=== PATIENT | female | born 1950 ===

== ENCOUNTER 2023-02-22 11:30 | Outpatient (AMB) | payer MEDICARE, SELFPAY ==
--- NOTE | 2023-02-22 12:27 | A.OFFPC_ITS ---
Vital Signs 02/22/23 12:28 Height 5 ft Weight 149 lb BMI 29.1 BP 120/78 Blood Pressure Location Lt brachial Position Sitting Pulse 72 Pulse Source Pulse Oximeter Pulse Oximetry (%) 97 Oxygen Delivery Method Room Air Intake Visit Reasons: Establish care/PE Intake Note: Patient here to re-establish care/PE. Allergies No Known Allergies Allergy (Verified 02/22/23 12:43) Medication List - Last Reconciled 02/22/23 by Cassie Miller MD amlodipine 5 mg PO DAILY cholecalciferol (vitamin D3) 50 mcg PO DAILY fluticasone propionate 50 mcg/actuation 1 spray intranasal DAILY Tobacco use date assessed: 02/22/23 Fall risk assessment: No Falls in past year Last assessed Fall Risk: 02/22/23 Dental Screening Did you have a dental visit in the last 12 months?: No Did you have a dental problem in the last 6 months where you did not have access to dental care?: No Was dental information given to patient?: No HPI Establish care/PE HPI Details 72-year-old lady with hypertension seasonal allergies, and history of anxiety disorder, here today for physical exam, and to establish self with a new provider. Blood pressure has been stable on current treatment. Has seasonal allergies, currently using Flonase nasal spray as needed. Complains of multiple tacks appearing on skin of chest and neck, which are increasing in size, requests also to see dermatologists due to presence of multiple moles on her trunk, has for routine skin check and screening for skin cancer Has intermittent episodes of anxiety attacks, has only been taking lorazepam as needed which has helped, needs a refill. Patient states she does not need to take it on a daily basis [facility] Medical History (Updated 02/22/23 @ 13:08 by Cassie Miller MD) Acute anxiety Essential hypertension Skin lesion of chest wall Skin tags, multiple acquired Surgical History (Updated 02/22/23 @ 13:08 by Cassie Miller MD) Hx of cataract surgery Family History (Updated 02/22/23 @ 12:59 by Cassie iMller MD) Father Esophageal cancer Mother No problems noted. 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 1. Little interest or pleasure in doing things: not at all 2. Feeling down, depressed, or hopeless: not at all 3. Trouble falling or staying asleep, or sleeping too much: not at all 4. Feeling tired or having little energy: not at all 5. Poor appetite or overeating: not at all 6. Feeling bad about yourself - or that you are a failure or have let yourself or your family down: not at all 7. Trouble concentrating on things, such as reading the newspaper or watching television: not at all 8. Moving or speaking so slowly that other people could have noticed. Or the opposite - being so fidgety or restless that you have been moving around a lot more than usual: not at all 9. Thoughts that you would be better off or of hurting yourself in some way: not at all Total score: 0 Depression Screening Interpretation: Negative 27510 - PHQ-9 Billing: Yes Source: Developed by Drs. Lucio Carpio, Barbara Bourgeois, Ridge Page and colleagues, with an educational melina from [employer]. Thrive Questionnaire Date Thrive assessed: 02/22/23 I am a: Patient What is your living situation today?: I have a steady place to live Within the past 12 months, did the food you bought not last and you didn't have the money to get more?: Never true Within the past 12 months, did you worry whether your food would run out before you got money to buy more?: Never true Do you have trouble paying for medicines?: No Do you have trouble getting transportation to medical appointments?: No Do you have trouble paying your heating and electricity bill?: No Do you have trouble taking care of your child, family member or friend?: No Do you have trouble with day-to-day activities such as bathing, preparing meals, shopping, managing finances, etc.?: No Are you currently unemployed and looking for a job?: No Are you interested in more education?: No AUDIT C Alcohol Use Questionnaire (AUDIT-C) 1. How often do you have a drink containing alcohol?: Never 3. How often do you have six or more drinks on one occasion?: Never Total Score: 0 Score Reviewed/Action Taken: No NESTOR-7 AMB Questionnaire NESTOR-7 Date NESTOR - 7 assessed: 02/22/23 Feeling nervous, anxious, or on edge: 0 = Not at all Not being able to stop or control worryin = Not at all Worrying too much about different things: 1 = Several days Trouble relaxin = Not at all Being so restless that it is hard to sit still: 0 = Not at all Becoming easily annoyed or irritable: 0 = Not at all Feeling afraid as if something awful might happen: 0 = Not at all Total NESTOR-7 score (0-4 normal; 5-9 mild; 10-14 moderate; 15-21 severe): 1 Source: Developed by Drs. Lucio Carpio, Barbara Bourgeois, Ridge Page and colleagues, with an educational melina from [employer]. NESTOR-7 Assessment Billing NESTOR-7 Assessment Tool: NESTOR-7 Assessment 15300 Review of Systems Const Denies body aches, Denies fatigue, Denies fever(s), Denies headache(s) and Denies weakness Eyes Denies change in vision, Denies eye discharge and Denies itchy eyes ENT Denies dizziness, Denies headache(s), Reports nasal congestion, Denies nasal discharge, Denies sinus pressure and Denies sore throat Card Denies chest pain, Denies lightheadedness, Denies palpitations and Denies dyspnea Resp Denies chest congestion, Denies cough, Denies dyspnea and Denies wheezing GI Denies abdominal pain, Denies change in bowel habits and Denies heartburn Denies hematuria, Denies urinary frequency, Denies dysuria and Denies urinary urgency Musc Reports no additional complaints Skin/Breast Denies breast pain, Denies breast mass, Reports lesions and Denies rash Neuro Denies dizziness, Denies headache(s) and Denies weakness Psych Reports no additional complaints Endo Denies fatigue, Denies polydipsia, Denies polyuria and Denies palpitations Gilmer/Lymph Denies easy bruising Aller/Immun Denies itchy eyes, Denies seasonal rhinorrhea and Denies wheezing Physical exam (Primary Care) Vital Signs: Last Vital Signs Pulse 72 02/22/23 12:28 BP 120/78 02/22/23 12:28 Pulse Ox 97 02/22/23 12:28 Oxygen Delivery Method Room Air 02/22/23 12:28 BMI result Body Mass Index 29.1 Tobacco/Smoking Status: Tobacco use Status Tobacco use date assessed 02/22/23 02/22/23 12:31 Patient Tobacco Use Status Never used Tobacco 02/22/23 13:00 e-Cigarette/Vaping Use Never Used 02/22/23 13:00 PHQ-9: PHQ-9 Score PHQ-9: Total score 0 03/11/23 01:52 Depression Screening Interpretation: Negative Thrive Assessment: Date of Thrive Assessment Date Thrive assessed 02/22/23 02/22/23 13:12 Const General: healthy appearing, comfortable, no acute distress, awake and Physically active Nutritional Appearance: overweight Orientation/consciousness: patient oriented x3 HENMT Head: Yes normocephalic Ears: external ears normal, TM's normal bilaterally and EAC's normal General nose exam: Normal external nose present Face and sinus: Yes normal facial exam, Yes sinuses nontender and Yes face symmetric Mouth: Normal oral and palatal mucosa present, lip normal, tongue normal, oropharynx normal and moist mucous membranes Eyes General: appearance normal, both eyes and all related structures Neck Neck: Yes full ROM, Yes no lymphadenopathy and Yes supple Resp Effort & Inspection: normal respiratory effort and able to speak in complete sentences Auscultation: clear to auscultation bilaterally Cardio Other: S1-S2 present regular rate and rhythm GI Inspection: Yes normal to inspection Palpation (GI): Soft to palpation, nontender, no guarding, no hernias and no masses Auscultation: normal bowel sounds General: Yes no CVA tenderness Back/Spine/Pelvis Back: no CVA tenderness and No back tenderness Skin Other: Multiple skin Tags on trunk/neck, hyperpigmented slightly raised lesion on chest with slightly blurred margins Neuro General: patient oriented x3, gait normal, tone normal, moves all extremities, Normal light touch and pain sensation, no focal motor deficits and CN's II-XI intact bilaterally Cognition (Neuro): normal cognition Gait exam (Neuro): Normal gait present Extrem General: Yes full ROM, Yes no joint enlargement, Yes no clubbing, cyanosis or edema and Yes normal gait Immunizations pneumoc 20-franco conj-dip cr(PF) Performing Provider: Cassie Miller MD Administered by: Evelyn Weiss CMA on 02/22/23 13:27 Dose Route Admin Location Lot Number Expiration Date NDC Thermite Bomb Loader 0.5 mL IM Left Deltoid [id number] 04/24/24 8173-3431-51 WYETH/PFIZER VIS Given Date VIS Provided VIS Publication Date 02/22/23 Single Vaccine 21 Eligibility Eligibility Date Funding Source Not [facility] Eligible 02/22/23 Private Assessment and Plan Assessment & Plan (1) Annual visit for general adult medical examination with abnormal findings: Code(s): Z00.01 - Encounter for general adult medical examination with abnormal findings Plan: Will check appropriate labs. Recommended dental visit every 6 months and regular eye exams, at least every 2 years, sees Mikaela. Take adequate calcium in diet and vitamin-D 3 at 2000 IU per cap once a day, in addition to weight- bearing exercises to help maintain good muscle tone and weight control. Instructed to do self-breast exam, and recommended to get yearly mammogram, ordered together with a bone density scan . Up-to-date with her Tdap, has had COVID vaccination but has not yet had her booster, does not want to get it, gets yearly flu shots, has had Prevnar 13 and pneumococcal vaccination, Prevnar 20 given today. Reminded to get her shingles vaccine. Patient states that she is not due yet for her colonoscopy, done at [place] (2) Essential hypertension: Code(s): I10 - Essential (primary) hypertension Plan: Blood pressure at goal of less than 130/80. Continue with current medication. Reinforced importance of following a low sodium diet, getting regular exercise, and lowering stress levels. (3) Acute anxiety: Code(s): F41.9 - Anxiety disorder, unspecified Plan: Takes lorazepam only as needed for acute anxiety attacks (4) Screening for osteoporosis: Code(s): Z13.820 - Encounter for screening for osteoporosis Plan: Bone density scan ordered, encouraged to continue doing regular weight-bearing exercise, continue taking vitamin-D 3 supplements at least 2000 units daily, take adequate calcium through dietary sources (5) Skin tags, multiple acquired: Code(s): L91.8 - Other hypertrophic disorders of the skin Plan: Referred to [facility] dermatology (6) Skin lesion of chest wall: Code(s): L98.9 - Disorder of the skin and subcutaneous tissue, unspecified Plan: Referral ordered to [facility] dermatology (7) Skin cancer screening: Code(s): Z12.83 - Encounter for screening for malignant neoplasm of skin Plan: Referred to [facility] dermatology Orders: Orders Alanine Aminotransferase 02/22/23 I10 - Essential (primary) hypertension, F41.9 - Anxiety disorder, unspecified, N95.9 - Unspecified menopausal and perimenopausal disorder Aspartate Amino Transferase 02/22/23 I10 - Essential (primary) hypertension, F41.9 - Anxiety disorder, unspecified, N95.9 - Unspecified menopausal and perimenopausal disorder Basic Metabolic Panel Fasting 02/22/23 I10 - Essential (primary) hypertension, F41.9 - Anxiety disorder, unspecified, N95.9 - Unspecified menopausal and perimenopausal disorder Lipid Panel 02/22/23 I10 - Essential (primary) hypertension, F41.9 - Anxiety disorder, unspecified, N95.9 - Unspecified menopausal and perimenopausal disorder Vitamin D 25-OH Total 02/22/23 I10 - Essential (primary) hypertension, F41.9 - Anxiety disorder, unspecified, N95.9 - Unspecified menopausal and perimenopausal disorder Complete Blood Count Auto Diff 02/22/23 I10 - Essential (primary) hypertension, F41.9 - Anxiety disorder, unspecified, N95.9 - Unspecified menopausal and perimenopausal disorder XR DEXA axial skeleton 02/22/23 Z12.31 - Encounter for screening mammogram for malignant neoplasm of breast, Z13.820 - Encounter for screening for osteoporosis, Z78.0 - Asymptomatic menopausal state MM screening mammo BI 02/22/23 Z12.31 - Encounter for screening mammogram for malignant neoplasm of breast, Z13.820 - Encounter for screening for osteoporosis, Z78.0 - Asymptomatic menopausal state Pneumococcal 20 Immunization 02/22/23 Z23 - Encounter for immunization Referrals Dermatology Referral L91.8 - Other hypertrophic disorders of the skin, L98.9 - Disorder of the skin and subcutaneous tissue, unspecified, Z12.83 - Encounter for screening for malignant neoplasm of skin Medications: New fluticasone propionate 50 mcg/actuation 1 spray intranasal DAILY cholecalciferol (vitamin D3) 50 mcg PO DAILY Coding Level of Care Code New Pt Prev Care >65yr (26365) Diagnoses Annual visit for general adult medical examination with abnormal findings Z00.01 Essential hypertension I10 Acute anxiety F41.9 Screening for osteoporosis Z13.820 Skin tags, multiple acquired L91.8 Skin lesion of chest wall L98.9 Skin cancer screening Z12.83 Additional Codes NESTOR-7 Assessment Billing - NESTOR-7 Assessment Tool: NESTOR-7 Assessment 47104 ([id number])
[2023-02-22 12:28] VITALS: BP 120/78; PULSE 72; O2SAT 97; BMI 29.1
== END 2023-02-22 13:30 | disposition home or self-care (01) ==
PROVIDERS: Visit Provider Internal Medicine
DX: Z00.00 Encounter for general adult medical examination without abnormal findings (principal); I10 Essential (primary) hypertension; F41.9 Anxiety disorder, unspecified; Z13.820 Encounter for screening for osteoporosis; L91.8 Other hypertrophic disorders of the skin; L98.9 Disorder of the skin and subcutaneous tissue, unspecified
CPT/HCPCS: 90471; 90677; 99387

== ENCOUNTER 2023-04-01 09:31 | Outpatient (REF) | payer MEDICARE, SELFPAY ==
[2023-04-01 11:14] LABS: MANUAL DIFF FLAG NO
[2023-04-01 11:30] LABS: Basophils Percent Auto 0.5 % (0-2); Eosinophils Absolute Auto 0.2 X10*3/uL (0.0-0.4); Eosinophils Percent Auto 3.6 % (0-4); Hematocrit 36.5 % (37.0-47.0); Hemoglobin 11.8 g/dl (12.0-16.0); Imm Gran Abs Auto 0.01 X10*3/uL (0.00-0.03); Imm Gran Pct Auto 0.2 % (0.0-0.4); Lymphocytes Percent Auto 32.2 % (20-40); Mean Corpuscular HGB Conc 32.3 g/dl (31.0-35.0); Mean Corpuscular Hemoglobin 28.2 pg (27.0-33.0); Mean Corpuscular Volume 87.1 fL (80.0-98.0); Mean Platelet Volume 10.9 fL (9.4-12.3); Monocytes Absolute Auto 0.4 X10*3/uL (0.1-1.2); Monocytes Percent Auto 7.1 % (2-11); Neutrophils Absolute Auto 3.5 x10*3/uL (2.0-8.3); Neutrophils Percent Auto 56.4 % (45-73); Platelet Count 213 X10*3/uL (160-400); Red Blood Count 4.19 X10*6/uL (4.20-5.50); White Blood Count 6.2 X10*3/uL (4.8-10.8)
[2023-04-01 12:14] LABS: Alanine Aminotransferase 8 U/L (0-31); Anion Gap 12 (12-20); Aspartate Amino Transferase 13 U/L (5-31); Blood Urea Nitrogen 14 mg/dL (9-16); Calcium 9.5 mg/dL (8.4-10.2); Carbon Dioxide 28 mmol/L (22-29); Chloride 106 mmol/L (96-108); Cholesterol 199 mg/dL (<200); Estimated Glomerular Filt Rate > 60; Glucose Fasting 88 mg/dL (60-99); HDL Cholesterol 44 mg/dL (>40); LDL Cholesterol Calculated 109 mg/dL (<100); Potassium 4.1 mmol/L (3.3-5.1); Sodium 142 mmol/L (135-145); Triglycerides 233 mg/dL (<150)
[2023-04-01 12:29] LABS: Vitamin D 25-OH Total 40.1 ng/mL (>30)
== END 2023-04-01 09:32 | disposition home or self-care (01) ==
LOC: HO.HMGCLDS 09:31
PROVIDERS: PCP Internal Medicine; Visit Provider Internal Medicine
DX: F41.9 Anxiety disorder, unspecified (principal); N95.9 Unspecified menopausal and perimenopausal disorder; I10 Essential (primary) hypertension
CPT/HCPCS: 36415; 80048; 80061; 82306; 84450; 84460; 85025

== ENCOUNTER 2023-04-02 07:27 | Outpatient (REF) | payer MEDICARE, SELFPAY ==
--- NOTE | ~2023-04-02 | MM_ITS ---
EXAMINATION: BONE DENSITOMETRY CLINICAL INDICATION: Menopause. COMPARISON: This is the patient's baseline examination. TECHNIQUE: Using a [employer] DXA System (software version: 13.1) manufactured by [employer], dual-energy x-ray absorptiometry was performed of the lumbar spine and left hip. The images are of good technical quality. Summary results are attached. FINDINGS: LEFT FEMUR, NECK: BMD 0.845 g/cm2, Z-score 0.4, T-score -1.4, osteopenia. LEFT FEMUR, TOTAL: BMD 0.963 g/cm2, Z-score 1.3, T-score -0.4, normal. AP SPINE L1-L4: BMD 1.051 g/cm2, Z-score 0.6, T-score -1.1, osteopenia. IDENTIFIED RISK FACTORS: Early menopause, low calcium intake, secondary osteoporosis. HISTORY OF FRACTURE: None listed. MEDICATIONS: Calcium, vitamin D. MM/XR DEXA axial skeleton IMPRESSION: 1. DIAGNOSIS: Osteopenia based on the lowest T-score value of -1.4 in the femoral neck applying World Health Organization criteria. 2. 10-YEAR FRACTURE RISK PREDICTION, FRAX: Major osteoporotic fracture (clinical spine, forearm, hip or shoulder) 5.9%. Hip fracture 1.0%. 3. Treatment Recommendations: NOF guidelines recommend consideration for treatment in postmenopausal women and men age 50 and older presenting with the following: -A hip or vertebral (clinical or morphometric) fracture. -T-score less than or equal to -2.5 at the femoral neck or spine after appropriate evaluation to exclude secondary causes. -Low bone mass at the hip or spine and a 10-year fracture probability by FRAX of greater than or equal to 3% for hip fracture or greater than or equal to 20% for major osteoporotic fracture based on the [place] adapted WHO algorithm. 4. Other Recommendations: All treatment decisions require clinical judgment and consideration of individual patient factors, including patient preferences, comorbidities, previous drug use, risk factors not captured in the FRAX model (e.g. frailty, falls, vitamin D deficiency, increased bone turnover, interval significant decline in bone density) and possible under or overestimation of fracture risk by FRAX. Additional medical evaluation for secondary cause of low bone mineral density may be appropriate. FUTURE SCAN RECOMMENDATION: People with diagnosed cases of osteoporosis or at high risk for fracture should have regular bone mineral density tests. For patients eligible for Medicare, routine testing is allowed once every 2 years. The testing frequency can be increased to one year for patients who have rapidly progressing disease, those who are receiving or discontinuing medical therapy to restore bone mass, or have additional risk factors.
--- NOTE | ~2023-04-02 | MM_ITS ---
EXAMINATION: MM SCREENING DIGITAL BREAST TOMOSYNTHESIS, BILATERAL CLINICAL INFORMATION: Screening. Asymptomatic. COMPARISON: Mammography: 04/23/2020, 04/18/2019, 04/14/2018 ([facility]) TECHNIQUE: Digital breast tomosynthesis is performed in both the craniocaudal and mediolateral oblique views along with computer-aided detection (CAD). Synthesized 2D images are generated from the tomosynthesis. An added left MLO 3-D projection was provided. FINDINGS: There are scattered areas of fibroglandular density (ACR BI-RADS breast composition Category b). There are a few scattered benign round and punctate dermal calcifications. There is a skin lesion in the lateral inferior right breast. There are mild benign vascular calcifications. There is a focal asymmetry in the LEFT breast, upper outer quadrant, posterior one third, for which diagnostic views recommended to include the followin degree 3-D full-field left mediolateral view, spot compression 3-D left MLO and left CC views, and diagnostic ultrasound to follow if felt warranted by the interpreting radiologist. There are no suspicious findings in the RIGHT breast. MM/MM tomosynthesis screening BI IMPRESSION: Focal asymmetry upper outer LEFT breast as detailed above for which diagnostic views are recommended as discussed. No suspicious findings in the RIGHT breast. ASSESSMENT: BI-RADS BI-RADS 0 - Incomplete: Needs additional Imaging. RECOMMENDATION: 1. Additional views of the LEFT breast. 2. Targeted LEFT ultrasound if warranted after review of the additional views. 3. Radiology department staff will contact the patient for additional imaging. Additional Imaging required This examination should not preclude the clinical evaluation of a suspicious palpable abnormality.
== END 2023-04-02 07:28 | disposition home or self-care (01) ==
LOC: HO.MAMMO 07:27
PROVIDERS: PCP Internal Medicine; Visit Provider Internal Medicine
DX: Z12.31 Encounter for screening mammogram for malignant neoplasm of breast (principal); Z13.820 Encounter for screening for osteoporosis; Z78.0 Asymptomatic menopausal state
CPT/HCPCS: 77063; 77067; 77080

== ENCOUNTER → 2023-04-02 08:15 | Outpatient (BNV) | payer MEDICARE, SELFPAY | PROVIDERS: PCP Internal Medicine; Visit Provider Radiology Diagnostic Radiology | DX: Z12.31 Encounter for screening mammogram for malignant neoplasm of breast (principal) | CPT/HCPCS: 77063; 77067; 77080 ==

== ENCOUNTER 2023-05-14 14:08 | Outpatient (REF) | payer MEDICARE, SELFPAY ==
--- NOTE | ~2023-05-14 | MM_ITS ---
EXAMINATION: MM DIAGNOSTIC DIGITAL BREAST TOMOSYNTHESIS, LEFT CLINICAL INFORMATION: Follow-up focal asymmetry left breast upper outer quadrant seen on screening exam COMPARISON: Mammography: Screening mammography 04/02/2023. TECHNIQUE: Digital breast tomosynthesis is performed. 2D images are generated from the tomosynthesis. The following views are obtained: Full-field left 3-D mediolateral view, spot compression 3-D left CC view, and 3-D spot compression left MLO view. FINDINGS: There are scattered areas of fibroglandular density (ACR BI-RADS breast composition Category b). The previously seen focal asymmetry in the upper outer left breast completely effaces on additional views and is consistent with superimposition artifact of normal overlapping breast tissue. There is no persistent suspicious mass, suspicious grouped calcifications, or area of architectural distortion present within the left breast. There are a few benign dystrophic appearing calcifications, including skin calcifications. The parenchymal pattern is stable from prior exams. MM/MM tomosynthesis added views L IMPRESSION: No persistent evidence of malignancy within the left breast. Stable benign findings. Recommend the patient resume annual screening. ASSESSMENT: BI-RADS BI-RADS 2 - Benign Findings RECOMMENDATION: 1 year F/U Results were provided to the patient at time of visit by the technologist. This patient's information was entered into a reminder system with a target due date for their next mammogram.
== END 2023-05-14 14:09 | disposition home or self-care (01) ==
LOC: HO.MAMMO 14:08
PROVIDERS: PCP Internal Medicine; Visit Provider Internal Medicine
DX: N64.89 Other specified disorders of breast (principal)
CPT/HCPCS: 77061; 77065

== ENCOUNTER → 2023-05-14 14:30 | Outpatient (BNV) | payer MEDICARE, SELFPAY | PROVIDERS: PCP Internal Medicine; Visit Provider Radiology Diagnostic Radiology | DX: R92.322 Mammographic fibroglandular density, left breast (principal); R92.1 Mammographic calcification found on diagnostic imaging of breast | CPT/HCPCS: 77061; 77065; G0279 ==

== ENCOUNTER 2023-08-25 10:29 | Outpatient (AMB) | payer MEDICARE, SELFPAY ==
[2023-08-25 10:33] VITALS: BP 150/80; PULSE 71; O2SAT 98; BMI 28.3
--- NOTE | 2023-08-25 10:33 | A.OFFPC_ITS ---
Vital Signs 08/25/23 10:33 08/25/23 11:08 Height 5 ft Weight 145 lb BMI 28.3 BP 150/80 H 135/80 Blood Pressure Location Rt brachial Rt brachial Position Sitting Sitting Pulse 71 Pulse Source Pulse Oximeter Pulse Oximetry (%) 98 Oxygen Delivery Method Room Air Intake Visit Reasons: 6 month Follow up HTN Intake Note: Pt is here today for her 6 mo. f/u HTN Allergies aspirin Adverse Reaction (Uncoded 08/25/23 10:50) Nausea Medication List - Last Reconciled 08/25/23 by Cassie Miller MD amlodipine 5 mg PO DAILY cholecalciferol (vitamin D3) 50 mcg PO DAILY fluticasone propionate 50 mcg/actuation 1 spray intranasal DAILY Tobacco use date assessed: 08/25/23 Fall risk assessment: No Falls in past year Last assessed Fall Risk: 08/25/23 Dental Screening Dental Screen Date: 08/25/23 Did you have a dental visit in the last 12 months?: Yes Did you have a dental problem in the last 6 months where you did not have access to dental care?: Yes Was dental information given to patient?: Patient has dentist HPI 6 month Follow up HTN HPI Details 72-year-old lady with hypertension, curr ently on amlodipine 5 mg once a day, here today for her follow-up. Blood pressure today is elevated at 150/80. Denies any headache, no chest pain, no shortness of breath, no lightheadedness . Patient states that she has not been very compliant with her diet however, and no regular exercise. She also has hypertriglyceridemia, seen on last fasting labs done December 2022. Complains of occasional pain described as a burning sensation on plantar aspect of both feet especially when walking or standing for extended periods of time [facility] Medical History (Updated 08/25/23 @ 11:20 by Cassie Miller MD) Hypertriglyceridemia Pain of plantar aspect of heel Skin tags, multiple acquired Skin lesion of chest wall Acute anxiety Essential hypertension Surgical History Hx of cataract surgery Family History Father Esophageal cancer Mother No problems noted. Social History Housing: Apartment Patient Tobacco Use Status: Never used Tobacco e-Cigarette/Vaping Use: Never Used service: No Current occupational status: employed Current occupation: [employer] Cognitive needs: No Hearing needs: No Vision needs: Yes Questionnaire PHQ-9 Over the last 2 weeks, how often have you been bothered by any of the following problems? 1. Little interest or pleasure in doing things: not at all 2. Feeling down, depressed, or hopeless: not at all 3. Trouble falling or staying asleep, or sleeping too much: not at all 4. Feeling tired or having little energy: not at all 5. Poor appetite or overeating: not at all 6. Feeling bad about yourself - or that you are a failure or have let yourself or your family down: not at all 7. Trouble concentrating on things, such as reading the newspaper or watching television: not at all 8. Moving or speaking so slowly that other people could have noticed. Or the opposite - being so fidgety or restless that you have been moving around a lot more than usual: not at all 9. Thoughts that you would be better off or of hurting yourself in some way: not at all Total score: 0 Depression Screening Interpretation: Negative Depression Screening Done: Yes 24487 - PHQ-9 Billing: Yes Source: Developed by Drs. Lucio Carpio, Barbara Bourgeois, Ridge Page and colleagues, with an educational melina from [employer]. Thrive Questionnaire Date Thrive assessed: 08/25/23 I am a: Patient What is your living situation today?: I have a steady place to live Within the past 12 months, did the food you bought not last and you didn't have the money to get more?: Never true Within the past 12 months, did you worry whether your food would run out before you got money to buy more?: Never true Do you have trouble paying for medicines?: No Do you have trouble getting transportation to medical appointments?: No Do you have trouble paying your heating and electricity bill?: No Do you have trouble taking care of your child, family member or friend?: No Do you have trouble with day-to-day activities such as bathing, preparing meals, shopping, managing finances, etc.?: No Are you currently unemployed and looking for a job?: No Are you interested in more education?: No THRIVE Score: 0 AUDIT C Alcohol Use Questionnaire (AUDIT-C) 1. How often do you have a drink containing alcohol?: Never Total Score: 0 NESTOR-7 AMB Questionnaire NESTOR-7 Date NESTOR - 7 assessed: 08/25/23 Feeling nervous, anxious, or on edge: 0 = Not at all Not being able to stop or control worryin = Not at all Worrying too much about different things: 0 = Not at all Trouble relaxin = Not at all Being so restless that it is hard to sit still: 0 = Not at all Becoming easily annoyed or irritable: 0 = Not at all Feeling afraid as if something awful might happen: 0 = Not at all Total NESTOR-7 score (0-4 normal; 5-9 mild; 10-14 moderate; 15-21 severe): 0 Source: Developed by Drs. Lucio Carpio, Barbara Bourgeois, Ridge Page and colleagues, with an educational melina from [employer]. Review of Systems Const Denies body aches, Denies fatigue, Denies fever(s), Denies headache(s) and Denies weakness Eyes Denies change in vision ENT Denies dizziness, Denies headache(s), Reports nasal congestion, Denies nasal discharge, Denies sinus pressure and Denies sore throat Card Denies chest pain, Denies lightheadedness, Denies palpitations and Denies dyspnea Resp Denies chest congestion, Denies cough, Denies dyspnea and Denies wheezing GI Denies abdominal pain, Denies change in bowel habits and Denies heartburn Musc Reports no additional complaints Skin/Breast Denies breast pain, Denies breast mass, Reports lesions and Denies rash Neuro Denies dizziness, Denies headache(s) and Denies weakness Psych Reports no additional complaints Endo Denies fatigue, Denies polydipsia, Denies polyuria and Denies palpitations Gilmer/Lymph Denies easy bruising Aller/Immun Denies seasonal rhinorrhea and Denies wheezing Physical exam (Primary Care) Vital Signs: Last Vital Signs Pulse 71 08/25/23 10:33 BP 135/80 08/25/23 11:08 Pulse Ox 98 08/25/23 10:33 Oxygen Delivery Method Room Air 08/25/23 10:33 BMI result Body Mass Index 28.3 Tobacco/Smoking Status: Tobacco use Status Tobacco use date assessed 08/25/23 08/25/23 10:40 Patient Tobacco Use Status Never used Tobacco 08/25/23 10:40 e-Cigarette/Vaping Use Never Used 08/25/23 10:40 PHQ-9: PHQ-9 Score PHQ-9: Total score 0 08/25/23 11:14 Depression Screening Interpretation: Negative Thrive Assessment: Date of Thrive Assessment Date Thrive assessed 08/25/23 08/25/23 11:14 Const General: comfortable and no acute distress Nutritional Appearance: overweight Orientation/consciousness: patient oriented x3 HENMT Head: Yes normocephalic Ears: external ears normal General nose exam: Normal external nose present Face and sinus: Yes face symmetric Mouth: Normal oral and palatal mucosa present, oropharynx normal and moist mucous membranes Eyes General: appearance normal, both eyes and all related structures Neck Neck: Yes full ROM, Yes no lymphadenopathy and Yes supple Resp Effort & Inspection: normal respiratory effort and able to speak in complete sentences Auscultation: clear to auscultation bilaterally Cardio Other: S1-S2 present regular rate and rhythm GI Inspection: Yes normal to inspection Palpation (GI): Soft to palpation, nontender, no guarding and no masses Auscultation: normal bowel sounds General: Yes no CVA tenderness Back/Spine/Pelvis Back: no CVA tenderness and No back tenderness Skin Other: Multiple skin Tags on trunk/neck, hyperpigmented slightly raised lesion on chest with slightly blurred margins Neuro General: patient oriented x3, gait normal, tone normal, moves all extremities, Normal light touch and pain sensation, no focal motor deficits and CN's II-XI intact bilaterally Cognition (Neuro): normal cognition Gait exam (Neuro): Normal gait present Extrem Other: No gross bone deformity, nontender to palpation over plantar aspect of both feet, full range of motion of both ankle and toe General: Yes full ROM, Yes no joint enlargement, Yes no clubbing, cyanosis or edema and Yes normal gait Assessment and Plan Assessment & Plan (1) Essential hypertension: Code(s): I10 - Essential (primary) hypertension Plan: Blood pressure goal is less than 130/80. Continue with amlodipine 5 mg daily in a.m... Reinforced importance of following a low sodium diet, getting regular exercise, and lowering stress levels. (2) Pain of plantar aspect of heel: Code(s): M79.673 - Pain in unspecified foot Plan: Referred to podiatry for further evaluation (3) Hypertriglyceridemia: Code(s): E78.1 - Pure hyperglyceridemia Plan: Advised to cut back on a lot of intake of processed foods, junk food, take out meal, iced coffee and soda. . Regular exercise recommended Orders: Referrals Podiatry Referral M79.673 - Pain in unspecified foot Coding Level of Care Code Est Pt Level 3 (39621) Diagnoses Essential hypertension I10 Pain of plantar aspect of heel M79.673 Hypertriglyceridemia E78.1
[2023-08-25 11:08] VITALS: BP 135/80
== END 2023-08-25 11:27 | disposition home or self-care (01) ==
PROVIDERS: Visit Provider Internal Medicine
DX: I10 Essential (primary) hypertension (principal); M79.673 Pain in unspecified foot; E78.1 Pure hyperglyceridemia
CPT/HCPCS: 99213

== ENCOUNTER 2024-02-24 10:28 | Outpatient (AMB) | payer MEDICARE, SELFPAY ==
[2024-02-24 11:00] VITALS: BP 142/82; PULSE 87; O2SAT 96; BMI 28.7
--- NOTE | 2024-02-24 11:00 | MHC.PC.OV ---
Vital Signs 02/24/24 11:00 Height 5 ft Weight 147 lb BMI 28.7 BP 142/82 H Blood Pressure Location Rt brachial Position Sitting Pulse 87 Pulse Source Pulse Oximeter Pulse Oximetry (%) 96 Oxygen Delivery Method Room Air Intake Visit Reasons: Annual PE Intake Note: Pt is here today for her PE: Last mammogram 05/14/23, bone density scan 04/02/23 Allergies aspirin Adverse Reaction (Uncoded 02/24/24 11:20) Nausea Medication List - Last Reconciled 02/24/24 by Cassie Miller MD amlodipine 5 mg PO DAILY cholecalciferol (vitamin D3) 50 mcg PO DAILY fluticasone propionate 50 mcg/actuation 1 spray intranasal DAILY Tobacco use date assessed: 02/24/24 Fall risk assessment: No Falls in past year Last assessed Fall Risk: 02/24/24 Dental Screening Dental Screen Date: 02/24/24 Did you have a dental visit in the last 12 months?: No Did you have a dental problem in the last 6 months where you did not have access to dental care?: No Was dental information given to patient?: Patient has dentist HPI Annual PE HPI Details 73-year-old lady with hypertension hypertriglyceridemia, here today for her physical exam. She has been compliant with taking her medications currently on amlodipine for her blood pressure 5 mg daily., and has been trying to follow a low-cholesterol diet. She is up-to-date with her screening mammogram, last done: 05/14/23, and had a bone density scan done 04/02/23 which showed presence of mild osteopenia in left femoral neck and the lower back, normal in left femur. She was found to be mildly anemic with normocytic normochromic anemia on last blood work, currently feeling well, with no complaints of chest pain, no headache or lightheadedness, no shortness of breath on exertion. Patient states that she had a screening colonoscopy done at [place] about 6 years ago with normal findings. [facility] Medical History (Updated 02/24/24 @ 11:48 by Cassie Miller MD) Plantar fasciitis, bilateral Uncontrolled hypertension Normocytic normochromic anemia Hypertriglyceridemia Pain of plantar aspect of heel Skin tags, multiple acquired Skin lesion of chest wall Essential hypertension Surgical History Hx of cataract surgery Family History Father Esophageal cancer Mother No problems noted. Social History Housing: Apartment Patient Tobacco Use Status: Never used Tobacco e-Cigarette/Vaping Use: Never Used service: No Current occupational status: employed Current occupation: [employer] Cognitive needs: No Hearing needs: No Vision needs: Yes Questionnaire Thrive Questionnaire Date Thrive assessed: 08/25/23 NESTOR-7 AMB Questionnaire NESTOR-7 Date NESTOR - 7 assessed: 08/25/23 Source: Developed by Drs. Lucio Carpio, Barbara Bourgeois, Ridge Page and colleagues, with an educational melina from [employer]. Review of Systems Const Denies body aches, Denies fatigue, Denies fever(s), Denies headache(s) and Denies weakness Eyes Denies change in vision ENT Denies dizziness, Denies headache(s), Reports nasal congestion, Denies nasal discharge, Denies sinus pressure and Denies sore throat Card Denies chest pain, Denies lightheadedness, Denies palpitations and Denies dyspnea Resp Denies chest congestion, Denies cough, Denies dyspnea and Denies wheezing GI Denies abdominal pain, Denies change in bowel habits and Denies heartburn Reports no additional complaints Musc Reports no additional complaints Skin/Breast Details: has appt with [facility] in Denies breast pain, Denies breast mass, Reports lesions and Denies rash Neuro Denies dizziness, Denies headache(s) and Denies weakness Psych Reports no additional complaints Endo Denies fatigue, Denies polydipsia, Denies polyuria and Denies palpitations Gilmer/Lymph Denies easy bruising Aller/Immun Denies seasonal rhinorrhea and Denies wheezing Physical exam (Primary Care) Vital Signs: Last Vital Signs Pulse 87 02/24/24 11:00 BP 142/82 H 02/24/24 11:00 Pulse Ox 96 02/24/24 11:00 Oxygen Delivery Method Room Air 02/24/24 11:00 BMI result Body Mass Index 28.7 Tobacco/Smoking Status: Tobacco use Status Tobacco use date assessed 02/24/24 02/24/24 11:02 Patient Tobacco Use Status Never used Tobacco 02/24/24 11:02 e-Cigarette/Vaping Use Never Used 02/24/24 11:02 Thrive Assessment: Date of Thrive Assessment Date Thrive assessed 08/25/23 02/24/24 11:02 Advance Care Planning discussion: Completed/Scanned Date of discussion: 02/24/24 Who was present: Patient Forms completed: Health Care Proxy and MOLST (Declined to fill) Time spent: 16-45 minutes Actual minutes spent: 16 Const General: comfortable and no acute distress Nutritional Appearance: overweight Orientation/consciousness: patient oriented x3 HENMT Head: Yes normocephalic Ears: external ears normal General nose exam: Normal external nose present Face and sinus: Yes face symmetric Mouth: Normal oral and palatal mucosa present, oropharynx normal and moist mucous membranes Eyes General: appearance normal, both eyes and all related structures Neck Neck: Yes full ROM, Yes no lymphadenopathy and Yes supple Chest Breast/axilla palpation: normal palpation of the breasts Resp Effort & Inspection: normal respiratory effort and able to speak in complete sentences Auscultation: clear to auscultation bilaterally Cardio Other: S1-S2 present regular rate and rhythm GI Inspection: Yes normal to inspection Palpation (GI): Soft to palpation, nontender, no guarding and no masses Auscultation: normal bowel sounds General: Yes no CVA tenderness Back/Spine/Pelvis Back: no CVA tenderness and No back tenderness Skin Other: Multiple skin Tags on trunk/neck, hyperpigmented slightly raised lesion on chest with slightly blurred margins Neuro General: patient oriented x3, gait normal, tone normal, moves all extremities, Normal light touch and pain sensation, no focal motor deficits and CN's II-XI intact bilaterally Cognition (Neuro): normal cognition Gait exam (Neuro): Normal gait present Extrem General: Yes full ROM, Yes no joint enlargement, Yes no clubbing, cyanosis or edema and Yes normal gait Assessment and Plan Assessment & Plan (1) Annual visit for general adult medical examination with abnormal findings: Code(s): Z00.01 - Encounter for general adult medical examination with abnormal findings Plan: Will check appropriate labs, patient wants to have it repeated around 04/14/2024, as she is still trying to lower her cholesterol with diet and exercise. Continue regular dental visit every 6 months and goes to [facility] for her regular eye exams. Take adequate calcium in diet and vitamin-D 3 at 2000 IU per cap once a day, in addition to weight-bearing exercises to help maintain good muscle tone and weight control. Instructed to do self-breast exam, and continue with yearly mammogram, currently up-to-date. She is also up-to-date with her bone density scan. States that she had a screening colonoscopy done in [place] approximately 6 years ago with benign findings. Does not want to get a COVID booster, advised to get yearly flu shot, has had 1 shingles vaccine but does not want to get the 2nd 1 as it made her very ill. Pneumonia vaccine up-to-date (2) Normocytic normochromic anemia: Code(s): D64.9 - Anemia, unspecified Plan: Ordered CBC and iron profile (3) Uncontrolled hypertension: Code(s): I10 - Essential (primary) hypertension Plan: Blood pressure not at goal of less than 130/80. Continue with amlodipine 5 mg at night, and added lisinopril 5 mg 1 tablet taken in a.m. Reinforced importance of following a low sodium diet, getting regular exercise, and lowering stress levels. Schedule follow-up in a month (4) Hypertriglyceridemia: Code(s): E78.1 - Pure hyperglyceridemia Plan: Stressed importance of adhering to a to low-cholesterol diet and getting regular exercise, at least 30 minutes 3 to 4 times a week. Advised patient to make healthy food choices, eat more fruits, vegetables, whole grains, wild caught fish and low-fat dairy. Limit amount of meat and fried or fatty food products, as well as processed foods and fast foods. (5) Skin tags, multiple acquired: Code(s): L91.8 - Other hypertrophic disorders of the skin Plan: Has appointment already scheduled with Dermatology (6) Advanced directives, counseling/discussion: Code(s): Z71.89 - Other specified counseling Plan: Initiated the conversation about Advanced Directives. Advanced Directives help patients prepare for current and future decisions about their medical treatment and place of care. Discussed with patient that it is a process where a patients current condition and prognosis are reviewed, their wishes for information regarding their illness are elicited, and likely medical dilemmas are presented and options discussed. Healthcare proxy form completed today. The form can be amended as needed, reviewed yearly and make changes as needed Plan Initiated the conversation about Advanced Directives. Advanced Directives help patients prepare for current and future decisions about their medical treatment and place of care. Discussed with patient that it is a process where a patients current condition and prognosis are reviewed, their wishes for information regarding their illness are elicited, and likely medical dilemmas are presented and options discussed. Healthcare proxy form completed today. The form can be amended as needed, reviewed yearly and make changes as needed Orders: Orders Complete Blood Count Auto Diff 02/24/24 D64.9 - Anemia, unspecified IRON PROFILE 02/24/24 D64.9 - Anemia, unspecified Medications: New lisinopril 5 mg PO DAILY 90 tabs 1RF Coding Level of Care Code Est Pt Prev Care >65y(82813) Diagnoses Annual visit for general adult medical examination with abnormal findings Z00.01 Normocytic normochromic anemia D64.9 Uncontrolled hypertension I10 Hypertriglyceridemia E78.1 Skin tags, multiple acquired L91.8 Advanced directives, counseling/discussion Z71.89 Additional Codes Vital Signs *Quality* - Advance Care Planning discussion: Completed/Scanned ([id number]) Vital Signs *Quality* - Time spent: 16-45 minutes ([id number])
== END 2024-02-24 11:50 | disposition home or self-care (01) ==
PROVIDERS: Visit Provider Internal Medicine
DX: Z00.01 Encounter for general adult medical examination with abnormal findings (principal); D64.9 Anemia, unspecified; I10 Essential (primary) hypertension; E78.1 Pure hyperglyceridemia; L91.8 Other hypertrophic disorders of the skin
CPT/HCPCS: 1123F; 99213; 99397; 99497

== ENCOUNTER 2024-04-07 09:41 | Outpatient (REF) | payer MEDICARE, SELFPAY ==
--- NOTE | ~2024-04-07 | MM_ITS ---
EXAMINATION: MM SCREENING DIGITAL BREAST TOMOSYNTHESIS, BILATERAL CLINICAL INFORMATION: Screening. Asymptomatic. COMPARISON: Mammography: Comparison is made with available priors TECHNIQUE: Digital breast mammography with tomosynthesis is performed in both the craniocaudal and mediolateral oblique views along with computer-aided detection (CAD). FINDINGS: There are scattered areas of fibroglandular density (ACR BI-RADS breast composition Category b). There are no significant masses, abnormal calcifications, or other abnormalities. MM/MM tomosynthesis screening BI IMPRESSION: No mammographic evidence of malignancy. ASSESSMENT: BI-RADS BI-RADS 1 - Negative RECOMMENDATION: Routine annual mammography screening. 1 year F/U This examination should not preclude the clinical evaluation of a suspicious palpable abnormality. This patient's information was entered into a reminder system with a target due date for their next mammogram. Electronically signed by: Debbie Garland DO 04/20/2024 08:07 PM EDT
== END 2024-04-07 09:42 | disposition home or self-care (01) ==
LOC: HO.MAMMO 09:41
PROVIDERS: PCP Internal Medicine; Visit Provider Internal Medicine
DX: Z12.31 Encounter for screening mammogram for malignant neoplasm of breast (principal)
CPT/HCPCS: 77063; 77067

== ENCOUNTER → 2024-04-07 10:00 | Outpatient (BNV) | payer MEDICARE, SELFPAY | PROVIDERS: PCP Internal Medicine; Visit Provider Internal Medicine | DX: Z12.31 Encounter for screening mammogram for malignant neoplasm of breast (principal) | CPT/HCPCS: 77063; 77067 ==

== ENCOUNTER 2024-04-17 10:06 | Outpatient (REF) | payer MEDICARE, SELFPAY ==
[2024-04-17 13:29] LABS: MANUAL DIFF FLAG NO
[2024-04-17 13:38] LABS: Basophils Percent Auto 0.3 % (0-2); Eosinophils Absolute Auto 0.2 X10*3/uL (0.0-0.4); Eosinophils Percent Auto 2.2 % (0-4); Hematocrit 37.5 % (37.0-47.0); Imm Gran Abs Auto 0.03 X10*3/uL (0.00-0.03); Imm Gran Pct Auto 0.4 % (0.0-0.4); Lymphocytes Absolute Auto 1.6 X10*3/uL (1.2-4.9); Lymphocytes Percent Auto 21.5 % (20-40); Mean Corpuscular Hemoglobin 28.8 pg (27.0-33.0); Mean Corpuscular Volume 90.1 fL (80.0-98.0); Mean Platelet Volume 10.7 fL (9.4-12.3); Monocytes Absolute Auto 0.4 X10*3/uL (0.1-1.2); Monocytes Percent Auto 5.6 % (2-11); Neutrophils Absolute Auto 5.3 x10*3/uL (2.0-8.3); Platelet Count 218 X10*3/uL (160-400); Red Blood Count 4.16 X10*6/uL (4.20-5.50); Red Cell Distribution Width 13.4 % (11.0-16.0); White Blood Count 7.6 X10*3/uL (4.8-10.8)
[2024-04-17 14:13] LABS: Alanine Aminotransferase 11 U/L (0-31); Anion Gap 10 (12-20); Aspartate Amino Transferase 13 U/L (5-31); Blood Urea Nitrogen 14 mg/dL (9-16); Calcium 9.4 mg/dL (8.4-10.2); Carbon Dioxide 28 mmol/L (22-29); Chloride 108 mmol/L (96-108); Cholesterol 215 mg/dL (<200); Estimated Glomerular Filt Rate > 60; Glucose Fasting 116 mg/dL (60-99); HDL Cholesterol 46 mg/dL (>40); Iron 93 mcg/dL (30-160); LDL Cholesterol Calculated 129 mg/dL (<100); Percent Iron Saturation 48 % (15-50); Sodium 142 mmol/L (135-145); Total Iron Binding Capacity 192 mcg/dL (228-428); Triglycerides 204 mg/dL (<150); Unsaturated Iron Binding 99 ug/dL
== END 2024-04-17 10:07 | disposition home or self-care (01) ==
LOC: HO.HMGCLDS 10:06
PROVIDERS: PCP Internal Medicine; Visit Provider Internal Medicine
DX: E78.1 Pure hyperglyceridemia (principal); I10 Essential (primary) hypertension; Z78.0 Asymptomatic menopausal state; D64.9 Anemia, unspecified
CPT/HCPCS: 36415; 80048; 80061; 82306; 83540; 84450; 84460; 85025

== ENCOUNTER 2024-05-23 09:37 | Outpatient (AMB) | payer MEDICARE, SELFPAY ==
--- NOTE | 2024-05-23 09:44 | MHC.PC.OV ---
Vital Signs 05/23/24 09:59 Height 5 ft Weight 146 lb BMI 28.5 BP 150/82 H Blood Pressure Location Rt brachial Position Sitting Pulse 69 Pulse Source Pulse Oximeter Pulse Oximetry (%) 98 Oxygen Delivery Method Room Air Intake Visit Reasons: ffup htn and lipids after labs done Intake Note: Pt is here today for her f/u HTN,lipids and lab results Allergies aspirin Adverse Reaction (Uncoded 05/23/24 10:24) Nausea Medication List - Last Reconciled 05/23/24 by Cassie Miller MD amlodipine 5 mg PO DAILY cholecalciferol (vitamin D3) 50 mcg PO DAILY fluticasone propionate 50 mcg/actuation 1 spray intranasal DAILY lisinopril 5 mg PO DAILY Tobacco use date assessed: 05/23/24 Fall risk assessment: No Falls in past year Last assessed Fall Risk: 05/23/24 Dental Screening Dental Screen Date: 05/23/24 Did you have a dental visit in the last 12 months?: Yes Did you have a dental problem in the last 6 months where you did not have access to dental care?: Yes Was dental information given to patient?: Patient has dentist HPI ffup htn and lipids after labs done HPI Details 73-year-old lady here today for follow-up on hypertension . Currently taking amlodipine 5 mg daily and lisinopril 5 mg once a day. Compliant with taking her medication trying to follow recommended diet. Blood pressure today however elevated. Latest fasting labs showed normal electrolytes, renal function, and vitamin-D level. Her fasting lipids showed higher LDL cholesterol than last check but still within normal limits. Fasting glucose in the prediabetic range however. No anemia seen [facility] Medical History (Updated 05/28/24 @ 22:18 by Cassie Miller MD) Plantar fasciitis, bilateral Hypertriglyceridemia Pain of plantar aspect of heel Skin tags, multiple acquired Skin lesion of chest wall Essential hypertension Surgical History Hx of cataract surgery Family History Father Esophageal cancer Mother No problems noted. 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 1. Little interest or pleasure in doing things: not at all 2. Feeling down, depressed, or hopeless: not at all 3. Trouble falling or staying asleep, or sleeping too much: not at all 4. Feeling tired or having little energy: not at all 5. Poor appetite or overeating: not at all 6. Feeling bad about yourself - or that you are a failure or have let yourself or your family down: not at all 7. Trouble concentrating on things, such as reading the newspaper or watching television: not at all 8. Moving or speaking so slowly that other people could have noticed. Or the opposite - being so fidgety or restless that you have been moving around a lot more than usual: not at all 9. Thoughts that you would be better off or of hurting yourself in some way: not at all Total score: 0 Depression Screening Interpretation: Negative Depression Screening Done: Yes 38059 - PHQ-9 Billing: Yes Source: Developed by Drs. Lucio Carpio, Barbara Bourgeois, Ridge Page and colleagues, with an educational melina from [employer]. Thrive Questionnaire Date Thrive assessed: 05/23/24 I am a: Patient What is your living situation today?: I have a steady place to live Within the past 12 months, did the food you bought not last and you didn't have the money to get more?: I choose not to answer this question Within the past 12 months, did you worry whether your food would run out before you got money to buy more?: Never true Do you have trouble paying for medicines?: No Do you have trouble getting transportation to medical appointments?: No Do you have trouble paying your heating and electricity bill?: Yes Do you have trouble taking care of your child, family member or friend?: I choose not to answer this question Do you have trouble with day-to-day activities such as bathing, preparing meals, shopping, managing finances, etc.?: No Are you currently unemployed and looking for a job?: Yes Are you interested in more education?: No Please select the resources that you would like help with: None Currently or been in a relationship where the following occur: I choose not to answer THRIVE Score: 1 AUDIT C Alcohol Use Questionnaire (AUDIT-C) 1. How often do you have a drink containing alcohol?: Never Total Score: 0 NESTOR-7 AMB Questionnaire NESTOR-7 Date NESTOR - 7 assessed: 05/23/24 Feeling nervous, anxious, or on edge: 0 = Not at all Not being able to stop or control worryin = Not at all Worrying too much about different things: 0 = Not at all Trouble relaxin = Not at all Being so restless that it is hard to sit still: 0 = Not at all Becoming easily annoyed or irritable: 0 = Not at all Feeling afraid as if something awful might happen: 0 = Not at all Total NESOTR-7 score (0-4 normal; 5-9 mild; 10-14 moderate; 15-21 severe): 0 Source: Developed by Drs. Lucio Carpio, Barbara Bourgeois, Ridge Page and colleagues, with an educational melina from [employer]. NESTOR-7 Assessment Billing NESTOR-7 Assessment Tool: NESTOR-7 Assessment 22234 Review of Systems Const Denies body aches, Denies fatigue, Denies fever(s), Denies headache(s) and Denies weakness Eyes Denies change in vision ENT Denies dizziness, Denies headache(s), Reports nasal congestion, Denies nasal discharge, Denies sinus pressure and Denies sore throat Card Denies chest pain, Denies lightheadedness, Denies palpitations and Denies dyspnea Resp Denies chest congestion, Denies cough, Denies dyspnea and Denies wheezing GI Denies abdominal pain, Denies change in bowel habits and Denies heartburn Reports no additional complaints Musc Reports no additional complaints Skin/Breast Details: has appt with [facility] in Denies breast pain, Denies breast mass, Reports lesions and Denies rash Neuro Denies dizziness, Denies headache(s) and Denies weakness Psych Reports no additional complaints Endo Denies fatigue, Denies polydipsia, Denies polyuria and Denies palpitations [place]/Lymph Denies easy bruising Aller/Immun Denies seasonal rhinorrhea and Denies wheezing Physical exam (Primary Care) Vital Signs: Last Vital Signs Pulse 69 05/23/24 09:59 BP 150/82 H 05/23/24 09:59 Pulse Ox 98 05/23/24 09:59 Oxygen Delivery Method Room Air 05/23/24 09:59 BMI result Body Mass Index 28.5 Tobacco/Smoking Status: Tobacco use Status Tobacco use date assessed 05/23/24 05/23/24 09:45 Patient Tobacco Use Status Never used Tobacco 05/23/24 09:45 e-Cigarette/Vaping Use Never Used 05/23/24 09:45 PHQ-9: PHQ-9 Score PHQ-9: Total score 0 05/23/24 10:32 Depression Screening Interpretation: Negative Thrive Assessment: Date of Thrive Assessment Date Thrive assessed 05/23/24 05/23/24 09:45 Currently or been in a relationship where the following occur: I choose not to answer Const General: comfortable and no acute distress Nutritional Appearance: overweight Orientation/consciousness: patient oriented x3 HENMT Head: Yes normocephalic Ears: external ears normal General nose exam: Normal external nose present Face and sinus: Yes face symmetric Mouth: Normal oral and palatal mucosa present, oropharynx normal and moist mucous membranes Eyes General: appearance normal, both eyes and all related structures Neck Neck: Yes full ROM, Yes no lymphadenopathy and Yes supple Resp Effort & Inspection: normal respiratory effort and able to speak in complete sentences Auscultation: clear to auscultation bilaterally Cardio Other: S1-S2 present regular rate and rhythm GI Inspection: Yes normal to inspection Palpation (GI): Soft to palpation, nontender, no guarding and no masses Auscultation: normal bowel sounds General: Yes no CVA tenderness Back/Spine/Pelvis Back: no CVA tenderness and No back tenderness Neuro General: patient oriented x3, gait normal, tone normal, moves all extremities, Normal light touch and pain sensation, no focal motor deficits and CN's II-XI intact bilaterally Cognition (Neuro): normal cognition Gait exam (Neuro): Normal gait present Extrem General: Yes full ROM, Yes no joint enlargement, Yes no clubbing, cyanosis or edema and Yes normal gait Results Reviewed Results Reviewed: Name: Vero Daniel Age/Sex: 73/F : 1950 Unit#: [id number] Attend Dr: Cassie Miller MD Re04/17/24 Status: DEP REF Location: [facility] Disch: SPEC : [id number] YUMIKO: 04/17/24 STATUS: COMP REQ : [id number] RECD: 04/17/24-[address]: Cassie Miller MD COMP: 04/17/24 ENTERED: 04/17/24 [facility] DR: ORDERED: CBC Auto Diff Test Result Flag Reference WBC 7.6 4.8-10.8 X10*3/uL RBC 4.16 L 4.20-5.50 X10*6/uL HGB 12.0 12.0-16.0 g/dl HCT 37.5 37.0-47.0 % MCV 90.1 80.0-98.0 fL MCH 28.8 27.0-33.0 pg MCHC 32.0 31.0-35.0 g/dl RDW 13.4 11.0-16.0 % PLT 218 160-400 X10*3/uL MPV 10.7 9.4-12.3 fL Neut Pct Auto 70.0 45-73 % ImGran Pct Auto 0.4 0.0-0.4 % Lymp Pct Auto 21.5 20-40 % [place] Pct Auto 5.6 2-11 % Eos Pct Auto 2.2 0-4 % Baso Pct Auto 0.3 0-2 % NRBC Pct Auto 0.0 0.0-0.2 /100WBC ANC Neut Abs # 5.3 2.0-8.3 x10*3/uL ImGran Abs Auto 0.03 0.00-0.03 X10*3/uL Lymph Abs Auto 1.6 1.2-4.9 X10*3/uL [place] Abs Auto 0.4 0.1-1.2 X10*3/uL Eos Abs Auto 0.2 0.0-0.4 X10*3/uL Baso Abs Auto 0.0 0.0-0.2 X10*3/uL NRBC Abs Auto 0.000 0.0-0.012 X10*3/uL leticia: Fredy,Vero Age/Sex: 73/F : 1950 Unit#: [id number] Attend Dr: Cassie Miller MD Re04/17/24 Status: DEP REF Location: [facility] Disch: SPEC : [id number] YUMIKO: 04/17/24 STATUS: COMP REQ : [id number] RECD: 04/17/24-[address]: Cassie Miller MD COMP: 04/17/24 ENTERED: 04/17/[address]: ORDERED: Met Prof Fast, IRON PROF, AST, ALT, Lipid Panel, Vitamin D 25-OH Test Result Flag Reference Sodium 142 135-145 mmol/L Potassium 4.0 3.3-5.1 mmol/L CL 108 96-108 mmol/L CO2 28 22-29 mmol/L Gap 10 L 12-20 BUN 14 9-16 mg/dL Creat 0.84 0.5-1.4 mg/dL EGFR > 60 NOTE: For -[place] individuals, multiply the result by 1.210. Chronic Kidney Disease: Estimated GFR < 60 mL/min/1.73m2 Severe Kidney Disease: Estimated GFR < 15 mL/min/1.73m2 FBS 116 H 60-99 mg/dL A fasting glucose from 100-125 mg/dl is considered impaired (pre-diabetes). CA 9.4 8.4-10.2 mg/dL Iron 93 30-160 mcg/dL TIBC 192 L 228-428 mcg/dL Saturation 48 15-50 % UIBC 99 ug/dL AST (GOT) 13 5-31 U/L ALT (GPT) 11 0-31 U/L Triglyceride 204 H <150 mg/dL Desirable Triglyceride: less than 150 mg/dL Borderline High Triglyceride 150-199 mg/dL High Triglyceride: 200-499 mg/dL Very High Triglyceride: greater than or equal to 5OO mg/dL Cholesterol 215 H <200 mg/dL Desirable Cholesterol: less than 200 mg/dL Borderline High Cholesterol: 200-239 mg/dL High Cholesterol: greater than 239 mg/dL LDL Calculated 129 H <100 mg/dL Desirable LDL: less than 100 mg/dL Near Optimal/Above Optimal LDL: 110-129 mg/dL Borderline High LDL: 130-159 mg/dL High LDL: 160-189 mg/dL Very High LDL: greater than or equal to 190 mg/dL HDL 46 >40 mg/dL Desirable HDL: greater than 40 mg/dL Note: This HDL assay may give artificially low results in patients with liver disease. Vit D 25-OH Tot 39.0 >30 ng/mL Health Based Reference Values* < 20 ng/mL Deficient 20-30 ng/mL Insufficient > 30 ng/mL Sufficient Coding Level of Care Code Est Pt Level 4 (44104) Complex EM visit Add On G2211 Diagnoses Hypertriglyceridemia E78.1 Essential hypertension I10 Additional Codes NESTOR-7 Assessment Billing - NESTOR-7 Assessment Tool: NESTOR-7 Assessment 25774 ([id number]) Assessment & Plan Assessment & Plan (1) Hypertriglyceridemia: Code(s): E78.1 - Pure hyperglyceridemia Category: Medical Plan: Recent fasting lipids showed elevated triglycerides, with normal LDL cholesterol HDL total cholesterol levels. Reinforced importance of following a low cholesterol diet and getting regular exercise. (2) Essential hypertension: Code(s): I10 - Essential (primary) hypertension Category: Medical Plan: Blood pressure not at goal of less than 130/80. Will continue on amlodipine 5 mg once a day to be taken at night and lisinopril 5 mg in the morning with breakfast. Reinforced importance of following a low sodium diet, getting regular exercise, and lowering stress levels. Reinforced importance of following a low-salt diet and getting regular exercise. Will have her see nurse navigator in a week to check blood pressure and make treatment adjustments as needed
[2024-05-23 09:59] VITALS: BP 150/82; PULSE 69; O2SAT 98; BMI 28.5
== END 2024-05-23 10:45 | disposition home or self-care (01) ==
LOC: HO.HMCC 09:38
PROVIDERS: PCP Internal Medicine; Visit Provider Internal Medicine
DX: E78.1 Pure hyperglyceridemia (principal); I10 Essential (primary) hypertension

== ENCOUNTER → 2024-05-23 09:37 | Outpatient (BNVA) | payer MEDICARE, SELFPAY | PROVIDERS: PCP Internal Medicine; Visit Provider Internal Medicine | DX: E78.1 Pure hyperglyceridemia (principal); I10 Essential (primary) hypertension | CPT/HCPCS: 96127; 99212 ==

== ENCOUNTER 2025-01-01 10:48 | Outpatient (AMB) | payer OTHER, MEDICARE, SELFPAY ==
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
[2025-01-01 10:58] VITALS: BP 142/82; PULSE 85; TEMP 36.4; O2SAT 95; BMI 28.4
--- OUTSIDE RECORDS SUMMARY | 2025-01-01 12:11 | XMS_ITS | Encounter Summary ---
Author Organization [facility] Address [address] [place] [address] Care Team Providers Care Senior Accounting Specialist Name Role Phone Paul Driver MD Primary Care Provider [phone] Community, Pcp Primary Care Provider Unavailabl e Encounter Details Date Type Department Care Team Description 05/21/2016 [facility] Medical Records [address] [place] [id number] Abstract, Provider Social History Tobacco Use Types Packs/Day Years Used Date Smoking Tobacco: Former Smokeless Tobacco: Never Comments:14 years ago Alcohol Use Standard Drinks/Week Comments No 0 (1 standard drink = 0.6 oz pur e alcohol) Sex Assigned at Date Recorded Not on file Job Start Date Occupation Industry Not on file Not on file Not on file documented as of this encounter Plan of Treatment Not on file documented as of this encounter Visit Diagnoses Not on filedocumented in this encounter Care Teams Senior Accounting Specialist Relationship Specialty Start Date End Date Paul Driver MD [address] [place] [id number] PCP - General 07/07/07 04/11/23 [facility], Pcp [address] [place] [id number] PCP - General Internal Medicine 04/12/23 documented as of this encounter
== END 2025-01-01 11:50 | disposition home or self-care (01) ==
PROVIDERS: PCP Internal Medicine; Visit Provider Nurse Practitioner Family
DX: M54.2 Cervicalgia (principal)

== ENCOUNTER → 2025-01-01 10:48 | Outpatient (BNVA) | payer OTHER, MEDICARE, SELFPAY | PROVIDERS: PCP Internal Medicine; Visit Provider Nurse Practitioner Family ==

== ENCOUNTER 2025-01-04 08:40 | Outpatient (AMB) | payer OTHER, MEDICARE, SELFPAY ==
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
== END 2025-01-04 09:47 | disposition home or self-care (01) ==
LOC: HO.HMCC 08:40
PROVIDERS: PCP Internal Medicine; Visit Provider Internal Medicine
DX: M54.50 Low back pain, unspecified (principal); Z04.3 Encounter for examination and observation following other accident

== ENCOUNTER → 2025-01-04 08:40 | Outpatient (BNVA) | payer OTHER, MEDICARE, SELFPAY | PROVIDERS: PCP Internal Medicine; Visit Provider Internal Medicine | DX: Z13.89 Encounter for screening for other disorder (principal) ==

== ENCOUNTER 2025-05-18 10:24 | Outpatient (REF) | payer MEDICARE, OTHER, SELFPAY ==
--- OUTSIDE RECORDS SUMMARY | 2025-05-18 11:56 | XMS_ITS | Patient Health Record ---
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 Role Phone Angela MURCIA, Cassie Anderson Primary Care Provider Un available Luz Marina Goss Unavailable [phone] Allergies Allergen (clinical drug ingredient) Drug/Non Drug Allergy documented on EMR Reaction Allergy Type Onset Date Status aspirin Aspirin nausea Drug Allergy Active Reason For Referral No Information Medications Medication SIG (Take, Route, Frequency, Duration) Notes Start Date End Date Status amLODIPine Besylate 5 MG 1 tablet Orally Once a day Active Cholecalciferol Unkn own Fluticasone Propionate (Inhal) Unknown Social History Tobacco Use: Social History Observation Description Date Details (start date - stop date) Former Smoker NA - NA Tobacco Use/Smoking Question Answer Notes Are you a: former smoker Additional Findings: Tobacco Non-User Current no n-smoker Alcohol Screen Question Answer Notes Did you have a drink containing alcohol in the p ast year? No Points 0 Interpretation Negative Tobacco use other than smoking: Question Answer Notes Are you an other tobacco user? No Problems Problem Type SNOMED Code ICD Code Onset Dates Problem Status W/U Status Risk Notes Problem Acquired hammer toe of right foot (21924547508702 05) Hammer toe of right foot (M20.41) Active confirmed Problem Acquired hammer toe of left foot (40976382731442 03) Hammer toe of left foot (M20.42) Active confirmed Problem Neuropathy (315670137) Neuropathy (G62.9) Active confirmed Problem Acquired hallux valgus (70638020) Hallux valgus, right (M20.11) Active confirmed Problem Acquired hallux valgus (01283213) Hallux valgus, left (M20.12) Active confirmed Plan Of Treatment No Information Insurance Providers Payer Name Payer Address Payer Phone Subscriber Number Group Number Insured Name Patient Relationship to Insured Coverage Start Date Coverage End Date [facility] [address] [address] [place] [address] [phone] [id number] Vero Daniel Self - patient is the insured Medicare National [employer] [address] [facility] [place] [address] [id number] Vero Daniel Self - patient is the insured Medical (General) History Medical History History ICD Code Hypertriglyceridemia heel pain Anxiety Hypertension Arthritis CAD (Cholesterol) covid-19 Macular degeneration sinusitis Chicken pox Surgical History Surgery Date(Month/Year) cataract surgery
[2025-05-18 14:30] LABS: Alanine Aminotransferase 12 U/L (0-31); Anion Gap 8 (12-20); Aspartate Amino Transferase 18 U/L (5-31); Blood Urea Nitrogen 15 mg/dL (9-16); Calcium 9.6 mg/dL (8.4-10.2); Carbon Dioxide 31 mmol/L (22-29); Chloride 109 mmol/L (96-108); Cholesterol 231 mg/dL (<200); Estimated Glomerular Filt Rate > 60; HDL Cholesterol 49 mg/dL (>40); Potassium 4.0 mmol/L (3.3-5.1); Sodium 144 mmol/L (135-145); Triglycerides 307 mg/dL (<150)
== END 2025-05-18 10:25 | disposition home or self-care (01) ==
LOC: HO.HMGCLDS 10:24
PROVIDERS: PCP Internal Medicine; Visit Provider Internal Medicine
DX: I10 Essential (primary) hypertension (principal); E78.1 Pure hyperglyceridemia; Z78.0 Asymptomatic menopausal state
CPT/HCPCS: 36415; 80048; 80061; 82306; 84450; 84460

== ENCOUNTER 2025-05-31 11:01 | Outpatient (AMB) | payer MEDICARE, SELFPAY ==
[2025-05-31 11:03] VITALS: BP 130/72; PULSE 71; RESP 16; TEMP 36.4; O2SAT 95; BMI 28.1
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
--- OUTSIDE RECORDS SUMMARY | 2025-05-31 13:32 | XMS_ITS | Patient Health Record ---
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 Name Role Phone Angela MURCIA, Cassie Anderson Primary Care Provider Un available Luz Marina Goss Unavailable [phone] Allergies Allergen (clinical drug ingredient) Drug/Non Drug [...] Problem Acquired hammer toe of right foot (31522292721300 05) Hammer toe of right foot (M20.41) Active confirmed Problem Acquired hammer toe of left foot (75952121188701 03) Hammer toe of left foot (M20.42) Active confirmed Problem Neuropathy (165573222) Neuropathy (G62.9) Active confirmed Problem Acquired hallux valgus (36578877) Hallux valgus, right (M20.11) Active confirmed Problem Acquired hallux valgus (02574669) Hallux valgus, left (M20.12) Active confirmed Plan Of Treatment No Information Insurance Providers Payer Name Payer Address Payer Phone Subscriber Number Group Number Insured Name Patient Relationship to Insured Coverage Start Date Coverage End Date [facility] [address] [address] [place] [address] [phone] [id number] Vero Daniel Self - patient is the insured Medicare [employer] [address] [facility] [place] [address] [id number] Vero Daniel Self - patient is the insured Medical (General) History Medical History History ICD Code Hypertriglyceridemia heel pain Anxiety Hypertension Arthritis CAD (Cholesterol) covid-19 Macular degeneration sinusitis Chicken pox Surgical History Surgery Date(Month/Year) cataract surgery
== END 2025-05-31 11:28 | disposition home or self-care (01) ==
LOC: HO.HMCC 11:02
PROVIDERS: PCP Internal Medicine; Visit Provider Internal Medicine
DX: Z00.01 Encounter for general adult medical examination with abnormal findings (principal); M85.89 Other specified disorders of bone density and structure, multiple sites; L60.2 Onychogryphosis; M79.671 Pain in right foot; M79.672 Pain in left foot; M25.561 Pain in right knee; E78.1 Pure hyperglyceridemia; I10 Essential (primary) hypertension

== ENCOUNTER → 2025-05-31 11:01 | Outpatient (BNVA) | payer MEDICARE, OTHER, SELFPAY | PROVIDERS: PCP Internal Medicine; Visit Provider Internal Medicine | DX: Z00.01 Encounter for general adult medical examination with abnormal findings (principal); M85.89 Other specified disorders of bone density and structure, multiple sites; L60.2 Onychogryphosis; M79.671 Pain in right foot; M79.672 Pain in left foot; M25.561 Pain in right knee; M25.562 Pain in left knee; I10 Essential (primary) hypertension; E78.1 Pure hyperglyceridemia; Z13.31 Encounter for screening for depression; Z13.39 Encounter for screening examination for other mental health and behavioral disorders | CPT/HCPCS: 96127; 99397 ==

== ENCOUNTER → 2025-06-01 09:46 | Outpatient (BNVA) | payer MEDICARE, OTHER, SELFPAY | PROVIDERS: PCP Internal Medicine | DX: Z71.3 Dietary counseling and surveillance (principal); E78.5 Hyperlipidemia, unspecified | CPT/HCPCS: 99211 ==